=== PATIENT | female | born 2000 | race Caucasian/White ===

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

== ENCOUNTER 2024-07-28 04:22 | Inpatient (IN) ==
[2024-07-28] MEDS ORDERED: LIDOCAINE 1% LOCAL 20 ML VIAL INFIL PRN (05:28)
--- NOTE | 2024-07-28 05:34 | History & Physical Report ---
Date of Service July 28, 2024 Assessment & Plan (1) Group B streptococcal infection during : (2) SROM (spontaneous rupture of membranes): Plan 24 yo G1 at 37 2/7 wga presents w/ srom VSS Fetus cat 1 Labor - 3-4cm, was ft on Fri. Will give a few hours to see if progresses GBS+, pcn ordered epidural prn History of Present Illness Chief Complaint: ROM Primary Care Provider: Alexander Moore, DO 24 yo G1 at 37 2/7 wga presents w/ LOF since midnight. Had large gush and leaking after. Shortly after calling triage line, started getting bloodier. +FM and ctx PNI: GBS+ Past [employer] hx: G1 q24d cycles hx chlamydia 2021 Allergies Allergy/AdvReac Type Severity Reaction Status Date / Time Bactrim Allergy Intermediate RASH Unverified 01/03/18 15:08 sulfamethoxazole Allergy Intermediate RASH Verified 07/24/24 09:29 trimethoprim Allergy Intermediate RASH Verified 07/24/24 09:29 Home Medications Medication Instructions Recorded Confirmed Type prenat.vits,juan pablo,[id number] tab PO DAILY 01/03/24 07/24/24 History venlafaxine 37.5 mg 75 mg PO DAILY 01/03/24 07/28/24 History capsule,extended release 24 hr ondansetron 4 mg disintegrating 4 mg PO Q6H PRN nausea and 07/13/24 07/28/24 Rx tablet vomiting #20 tabs Patient History Medical History Ingrown right greater toenail History of common wart Surgical History No pertinent past surgical history Family History Aunt Breast cancer Other Anxiety Migraine Polycystic ovarian syndrome Denies family history of Ovarian cancer Colorectal cancer Uterine cancer Social History (Updated 07/28/24 @ 04:42 by Keke Horton RN) Smoking Status: Never smoker Do You Dip or Chew Tobacco: No; Hx Alcohol Use: No Hx Substance Use: No Preferred Language: Divehi Communication Ability: Effective Pollution Control Chemist Required: No Beliefs That Will Affect Care: None marital status: marital status details: Efrem ([phone] Current Living Situation: Spouse Current Living Situation Comment: lives with spouse, stepdaughter, no pets current occupational status: employed current occupation: Professional [employer] Other Information That Helps Us Care for You: No Feels Safe at Home: Yes Safety Concerns: Feels Safe At This Time Dental Care, Regularly: Yes Assistive Devices: None Physical Exam Genitourinary: OB Exam Abdomen: + vertex and + estimated weight (6-7) Manual OB Exam: + cervical dilation (3-4), + cervical effacement 70%, + station -2 and + amniotic fluid (+ferning, SSE bloody mucous w/o obv pooling) OB Exam Monitor Tracing: + external FHT monitor used, + external uterine monitor used (q8) and + category I (115-120/mod/+accel/-decel) Results & Data Vital Signs (Past 12 Hours) Vital Signs Temp Pulse Resp BP 07/28/24 04:45 97.7 F 18 07/28/24 04:36 56 L 117/71 Laboratory Results OB Labs: Blood Type A Positive 01/14/24 Antibody Screen NEGATIVE 01/14/24 Hgb 12.4 g/dl (12.0-16.0) 05/25/24 Hct 37.2 % (37.0-47.0) 05/25/24 MCV 89.6 fL (80.0-100.0) 01/29/24 Plt Count 207 K/uL (130-400) 01/29/24 Rubella IgG Antibody Immune (Immune) 01/14/24 RPR Nonreactive (Nonreactive) 11/16/21 Treponema pallidum Ab Negative (Negative) 05/25/24 Hep Bs Antigen Negative (Negative) 01/14/24 Hep Bs Antigen NON-REACTIVE (NON-REACTIVE) 11/16/21 Hepatitis C Antibody Negative (Negative) 01/14/24 Hepatitis C Ab (EIA) NON-REACTIVE (NON-REACTIVE) 11/16/21 HIV 1&2 Ab/P24 Ag 4thGn Negative (Negative) 01/14/24 HIV (1&2) Ag & Ab Conf NON-REACTIVE (NON-REACTIVE) 11/16/21 Glucose 1 Hr 50 gm 127 mg/dl (70-130) 05/25/24 OB Optional Labs: Chlamydia trachomatis RNA Not Detected (NotDetected) 01/14/24 Neisseria gonorrhoeae RNA Not Detected (NotDetected) 01/14/24 Labs Reviewed: Horizon 14-negative--mln cfdna-low risk--mln GBS+ Diagnostic Findings posterior placenta Coding Level of Care Code None Diagnoses Group B streptococcal infection during O98.819; B95.1 SROM (spontaneous rupture of membranes)
[2024-07-28] MEDS: LACTATED RINGER'S 1,000 ML IV PRN (06:05)
[2024-07-28 06:08] LABS: Hematocrit (blood only) 39.2 % (37.0-47.0); Hemoglobin 13.3 g/dl (12.0-16.0); Mean Corpuscular Hemoglobin 31.3 pg (25.0-34.0); Mean Corpuscular Hgb Conc 33.9 g/dL (32.0-36.0); Mean Corpuscular Volume 92.2 fL (80.0-100.0); Mean Platelet Volume 11.4 fL (9.4-12.4); Platelet Count 136 K/uL (130-400); RDW Coefficient of Variation 12.9 % (11.5-14.5); Red Blood Count 4.25 M/uL (4.20-5.40); White Blood Count 11.96 K/ul (4.8-10.8)
[2024-07-28] MEDS: PENICILLIN GK 6 MU in DEXTROSE 5% 250 ML IV STA (06:08)
[2024-07-28] MEDS: ONDANSETRON INJ 2 MG/ML 2 ML VIAL IV STA (07:33)
[2024-07-28] MEDS ORDERED: ePHEDrine sulfate 50 MG/ML AMP IV PRN (07:53)
[2024-07-28] MEDS ORDERED: ROPIVACAINE 0.5% PF 5 MG/ML 20 ML VIAL EPI PRN (07:53)
[2024-07-28] MEDS ORDERED: BUPIVACAINE 0.25% PF 30 ML VIAL EPI PRN (07:53)
[2024-07-28] MEDS ORDERED: NALOXONE HCL 0.4 MG/1 ML VIAL/CARP IV PRN (07:53)
[2024-07-28] MEDS ORDERED: BUPIVACAINE 0.25% PF 30 ML VIAL EPI STA (07:53)
[2024-07-28] MEDS ORDERED: SODIUM CHLORIDE 0.9% PF INJ 10 ML VIAL EPI PRN (07:53)
[2024-07-28] MEDS ORDERED: SODIUM CHLORIDE 0.9% PF INJ 10 ML VIAL EPI STA (07:53)
[2024-07-28] MEDS ORDERED: diphenhydrAMINE 50 MG/ML VIAL IV PRN (07:53)
[2024-07-28] MEDS ORDERED: LIDOCAINE 2%/EPINEPHRINE 1:200,000 20 ML PF EPI STA (07:53)
[2024-07-28] MEDS ORDERED: NALOXONE HCL 1 MG in SODIUM CHLORIDE 0.9% 1,000 ML IV PRN (07:53)
[2024-07-28] MEDS ORDERED: LIDOCAINE 2% MPF LOCAL 5 ML VIAL EPI PRN (07:53)
[2024-07-28] MEDS ORDERED: NALBUPHINE HCL INJ 10 MG/ML AMP IV PRN (07:53)
[2024-07-28] MEDS ORDERED: fentaNYL citrate PF 100 MCG/2 ML VIAL EPI PRN (07:53)
[2024-07-28] MEDS ORDERED: fentANYL 2 MCG/ML BUPIVacaine 0.125%-NSS 100ML BAG EPI PRN (07:53)
[2024-07-28] MEDS ORDERED: fentaNYL citrate PF 100 MCG/2 ML VIAL EPI STA (07:53)
--- NOTE | 2024-07-28 07:53 | Anesthesiology Consultation ---
Date of Service July 28, 2024 Assessment & Plan (1) Encounter for pre-operative examination: Chart Review Chart Review: Patient NOT seen in Pre Admission Testing and Acceptable Risk for Labor Epidural Consults Requested none History Height/Weight Height: 5 ft 2 in Weight: 63.957 kg Allergies Allergy/AdvReac Type Severity Reaction Status Date / Time Bactrim Allergy Intermediate RASH Unverified 01/03/18 15:08 sulfamethoxazole Allergy Intermediate RASH Verified 07/24/24 09:29 trimethoprim Allergy Intermediate RASH Verified 07/24/24 09:29 Medications Home Medications Medication Instructions Recorded Confirmed Last Taken prenat.vits,juan pablo,whg-iqfa-mauef tab PO DAILY 01/03/24 07/24/24 07/27/24 venlafaxine 37.5 mg 75 mg PO DAILY 01/03/24 07/28/24 07/27/24 capsule,extended release 24 hr ondansetron 4 mg disintegrating 4 mg PO Q6H PRN nausea and 07/13/24 07/28/24 07/22/24 tablet vomiting #20 tabs Active Medications Generic Name Dose Route Start Last Admin Trade Name Freq PRN Reason Stop Dose Admin Lactated Ringer's 1,000 mls @ 125 mls/hr 07/28/24 05:28 07/28/24 07:24 Lr IV 07/29/24 05:27 999 mls/hr .Q8H PRN Infusion L&D Protocol Protocol Past Medical History Medical History Ingrown right greater toenail History of common wart Past Family History Family History Aunt Breast cancer Other Anxiety Migraine Polycystic ovarian syndrome Denies family history of Ovarian cancer Colorectal cancer Uterine cancer Past Surgical History Surgical History No pertinent past surgical history Social History Smoking Status: Never smoker Do You Dip or Chew Tobacco: No Hx Alcohol Use: No Hx Substance Use: No Physical Exam Vital Signs Last Vital Signs Temp 97.7 F 07/28/24 04:46 Pulse 62 07/28/24 07:46 Resp 18 07/28/24 04:46 BP 112/68 07/28/24 07:06 Pulse Ox 100 07/28/24 07:46 Testing Laboratory Results 07/28/24 05:52
[2024-07-28] MEDS: fentaNYL citrate PF 100 MCG/2 ML VIAL ONE (08:10)
[2024-07-28] MEDS: fentANYL 2 MCG/ML BUPIVacaine 0.125%-NSS 100ML BAG ONE (08:10)
[2024-07-28] MEDS: LIDOCAINE 2%/EPINEPHRINE 1:200,000 20 ML PF ONE (08:10)
[2024-07-28] MEDS: BUPIVACAINE 0.25% PF 30 ML VIAL ONE (08:10)
[2024-07-28] MEDS: SODIUM CHLORIDE 0.9% PF INJ 10 ML VIAL ONE (08:16)
[2024-07-28] MEDS: ePHEDrine sulfate 50 MG/ML AMP ONE (08:16)
[2024-07-28] MEDS: PENICILLIN GK 3 MU in DEXTROSE 5% 100 ML IV PRN (09:54)
[2024-07-28] MEDS: OXYTOCIN 30 UNITS/NSS 30 UNITS/500 ML BAG IV PRN (14:29)
--- NOTE | 2024-07-28 14:40 | Delivery Summary ---
Vaginal Delivery Summary Date of Service July 28, 2024 Vaginal Delivery Summary and 2nd Degree LAC Spontaneous vaginal delivery the patient arrived in labor for the previous provider on-call at signout she was 5 cm I checked her somewhat later she was 7 artificial rupture of membranes for a forebag she had an epidural at this stage she progressed to fully dilated delivering a baby in occiput anterior position after delivery of the head the fluid was clear there was no nuchal cord gentle traction on the baby no excessive force resulted in delivery of a live male infant Cord clamped and cut cord blood obtained placenta removed with traction IV Pitocin started uterine tone improved second-degree tear repaired with 3-0 Vicryl sponge and instrument counts correct estimated blood loss excuse me quantitative blood loss 232 mL MNPG Vaginal Delivery Charge Delivery Type Details: and 2nd Degree LAC
[2024-07-28] MEDS ORDERED: HYDROCORTISONE ACETATE 25 MG SUPP PR PRN (14:49)
[2024-07-28] MEDS ORDERED: bisacodyL 10 MG SUPP PR PRN (14:49)
[2024-07-28] MEDS ORDERED: OXYTOCIN 30 UNITS/NSS 30 UNITS/500 ML BAG IV PRN (14:49)
[2024-07-28] MEDS ORDERED: ACETAMINOPHEN 325 MG TAB PO PRN (14:49)
[2024-07-28] MEDS: IBUPROFEN 600 MG TAB PO PRN (15:56)
[2024-07-28] MEDS: VENLAFAXINE HCL XR 75 MG CAPXR PO ONE (15:56)
[2024-07-28] MEDS: BENZOCAINE 20% SPRY 85 APPLN/85 GM CAN EXT PRN (15:57)
--- NOTE | 2024-07-28 16:21 | Anesthesia Procedure Note ---
Date of Service July 28, 2024 Anesthesia Post Epidural Note Vital Signs Vital Signs: Temp Pulse Resp BP Pulse Ox 36.5 C 63 18 112/65 98 07/28/24 14:40 07/28/24 16:15 07/28/24 16:10 07/28/24 16:15 07/28/24 14:31 Pain Intensity Abdomen: Pain Intensity: 7 Notes Mental Status: alert / awake / arousable Patient Amnestic to Procedure: No Nausea / Vomiting: adequately controlled Pain: adequately controlled Airway Patency, RR, SpO2: stable & adequate BP & HR: stable & adequate Hydration State: stable & adequate Neuraxial Anesthesia: sensory block is resolving Anesthetic Complications: no major complications apparent Epidural: Removed without complications and With tip intact
[2024-07-28] MEDS: DIPHTHER/TETAN/PERTUS Vaccine (Tdap, Adol/Adult) 0.5mL IM ONE (19:34)
[2024-07-28] MEDS: DOCUSATE SODIUM 100 MG CAP PO SCH (21:22)
[2024-07-29 06:41] LABS: Hematocrit (blood only) 35.2 % (37.0-47.0); Hemoglobin 11.8 g/dl (12.0-16.0); Mean Corpuscular Hemoglobin 31.2 pg (25.0-34.0); Mean Corpuscular Hgb Conc 33.5 g/dL (32.0-36.0); Mean Corpuscular Volume 93.1 fL (80.0-100.0); Mean Platelet Volume 11.9 fL (9.4-12.4); Platelet Count 122 K/uL (130-400); Red Blood Count 3.78 M/uL (4.20-5.40); White Blood Count 11.61 K/ul (4.8-10.8)
--- NOTE | 2024-07-29 07:09 | Obstetrical Progress Note ---
Date of Service July 29, 2024 Assessment & Plan (1) Encounter for pre-operative examination: Patient doing well. Minimal bleeding, no extremity pain she has no calf tenderness she is tolerating a regular diet she is voiding well she has no depression Instructions are reviewed and when to call she is advised to call the office for a follow-up appointment and sooner if she is having a problem Subjective Ambulation: ambulating normally Voiding: no voiding problems Passing Gas:: Yes Diet Tolerance:: regular diet Lochia:: Small Feeding Type:: breast feeding Physical Exam Constitutional WD/WN, vitals as above well developed and well nourished Respiratory normal respiratory effort, lungs clear to auscultation normal respiratory effort Cardiovascular RRR, no murmur, no edema Gastrointestinal (Abdomen) normal bowel sounds, soft, nontender, no hepatosplenomegaly Results & Data Vital Signs (Past 12 Hours) Vital Signs Temp Pulse Resp BP Pulse Ox O2 Del Method 07/29/24 04:45 98.2 F 74 18 116/76 99 Room Air 07/28/24 23:15 98.1 F 58 L 18 115/71 99 Room Air 07/28/24 20:00 98.2 F 62 20 125/69 100 Room Air
[2024-07-29] MEDS: PRENATAL VITAMIN 1 TAB PO SCH (07:15)
[2024-07-29] MEDS: VENLAFAXINE HCL XR 75 MG CAPXR PO SCH (07:17)
[2024-07-29 12:25] VITALS: RESP 18
[2024-07-29] MEDS: bisacodyL 5 MG TABEC PO SCH (20:56)
[2024-07-29 23:10] VITALS: O2SAT 97
[2024-07-30 06:11] LABS: Hematocrit (blood only) 36.2 % (37.0-47.0); Hemoglobin 12.1 g/dl (12.0-16.0)
--- NOTE | 2024-07-30 06:52 | Obstetrical Progress Note ---
Date of Service July 30, 2024 Assessment & Plan (1) state: (2) Perineal laceration during delivery: Plan Faina is a 24yo day 2 s/p with 2nd degree perineal laceration. Feels well today, VSS Continue care Encourage ambulation and Pain control with ibuprofen as needed Hgb: 12.1 Home today Follow up with Dr. Rod in 6wks Admission and Anticipated Discharge Date Admission Date: July 28, 2024 Supervising Physician Co-Signing Physician Notes Resident Physician Supervision Note: I was present with Dr. Oakes during the history and exam. I discussed the case with the resident and agree with the findings and plan as documented in the note. Any exceptions or clarifications are listed here: pt doing well, ready to go home, breast feeding going well. no pain or bleeding issues, eating, voiding, abd soft ff2 down nt, ext nt calves. ppd now ready for dc. instructions reviewed. f/u 6 wk pp check. rhpos, ri. Documented By: Kelsea Lazar MD, FACOG Subjective Faina is a 24yo day 2 s/p with 2nd degree perineal laceration. Feeling: good Ambulation: yes Void: peeing, gas Lochia: small Diet: tolerating Feeding: breast, no concerns Sx: denies Physical Exam Physical Exam: Constitutional: WD/WN, vitals as above GI/abd: +BS, fundus firm 2fw- umbilicus LE: no swelling, nontender to palpation, wiggles toes Psychiatric: A&Ox3, euthymic Results & Data Vital Signs (Past 12 Hours) Vital Signs Temp Pulse Resp BP Pulse Ox O2 Del Method 07/29/24 23:07 36.9 C 62 18 118/76 97 Room Air 07/29/24 20:40 36.6 C 68 18 111/64 96 Room Air Resident Activity Tracking Resident Involvement: Resident Care Provided Care Provided: OB Delivery (2) Perineal laceration during delivery Perineal laceration degree: second degree Qualified Code(s): O70.1 - Second degree perineal laceration during delivery
[2024-07-30 10:06] VITALS: TEMP 98.2
[2024-07-30 10:42] VITALS: BP 123/82; PULSE 62
== END 2024-07-30 11:40 | disposition home or self-care (01) | DRG 807 ==
LOC: OPB 04:22 → 4S1 04:24 → 4E2 17:24